=== PATIENT | female | born 2000 | race Caucasian/White ===

== ENCOUNTER 2020-07-15 14:16 | Outpatient (CLI) | payer OTHER ==
--- NOTE | 2020-07-15 15:19 | RAD ---
LUMBAR SPINE 2 VIEWS: HISTORY: Low back pain after lifting weights last week. FINDINGS: No evidence for acute fracture or dislocation or significant malalignment. No focal bone lesion. Di sk spaces are adequately preserved. IMPRESSION: Unremarkable lumbar spine 2 views. POS: RRE
== END 2020-07-15 14:17 | disposition home or self-care (01) ==
LOC: SCSRAD 14:16
PROVIDERS: ATTEND Family Medicine
DX: M54.5 Low back pain (principal)
CPT/HCPCS: 72100